=== PATIENT | male | born 1955 | race Caucasian/White ===

== ENCOUNTER 2019-08-03 16:34 | Inpatient (IN) ==
--- NOTE | 2019-08-03 18:08 | Diag Imaging Result Doc PS360 ---
EXAM: CT HEAD W/O CONTRAST INDICATION: ams TECHNIQUE: This exam was performed using automated exposure control, adjustment of mA or kV according to patient size, and/or use of iterative reconstruction technique. COMPARISON: None. FINDINGS: There is no definite acute infarct given the limited sensitivity of CT versus MRI. There is no discrete intracranial mass, mass effect, or intracranial hemorrhage. The surrounding soft tissues and bony structures are essentially unremarkable. IMPRESSION: No evidence of acute intracranial pathology. Electronically signed by Aashish Burroughs 08/03/2019 6:05 PM
--- NOTE | 2019-08-03 18:11 | Diag Imaging Result Doc PS360 ---
EXAM: CHEST-PORTABLE INDICATION: ams TECHNIQUE: One view COMPARISON: 03/13/2013 FINDINGS: There is a moderate-sized right pleural effusion with adjacent right basilar atelectasis. The left lung is clear. There is no evidence of pneumothorax. The cardiomediastinal silhouette and central vasculature are grossly unremarkable. IMPRESSION: Moderate-sized right pleural effusion with adjacent atelectasis. Electronically signed by Aashish Burroughs 08/03/2019 6:09 PM
[2019-08-03] MEDS ORDERED: NS 250 ML IV ONE (18:25)
[2019-08-03] MEDS ORDERED: ZOFRAN IV ONE (18:26)
[2019-08-03] MEDS ORDERED: MORPHINE IV ONE (18:26)
[2019-08-03 18:56] LABS: BASO# 0.02 X1000 (0.0-0.2); BASO% 0.2 % (0.0-0.8); HEMATOCRIT 47.2 % (42.0-52.0); IMM GRAN# 0.04 X1000 (0.0-0.04); IMM GRAN% 0.4 % (0.0-0.5); LYMPH# 1.03 X1000 (1.2-3.4); LYMPH% 9.2 % (20.5-51.1); MCH 30.4 PG (27-31); MCHC 33.9 g/dL (33-37); MCV 89.7 FL (81-99); MONO% 7.1 % (1.7-9.3); MPV 10.5 FL (7.4-10.4); NEUT# 9.33 X1000 (1.4-6.5); NEUT% 83.1 % (42.2-75.2); PLT 274 X1000 (130-400); RBC 5.26 XMIL (4.7-6.1); RDW 13.6 % (11.5-14.5); WBC 11.22 X1000 (4.8-10.8)
[2019-08-03 19:17] LABS: AGAP 14; ALB/GLOB RATIO 0.8; ALBUMIN 3.5 g/dL (3.5-5.0); ALKALINE PHOSPHATASE 365 U/L (32-122); BUN 18 mg/dL (8-22); CALCIUM 9.2 mg/dL (8.8-10.2); CHLORIDE 97 mmol/L (98-107); COSMO 280; CREATININE 0.6 mg/dL (0.7-1.2); ESTIMATED GFR > 60; GLUCOSE 144 mg/dL (70-104); GOT 181 U/L (10-34); GPT 167 U/L (10-44); POTASSIUM 3.9 mmol/L (3.5-5.1); SODIUM 138 mmol/L (136-145); TCO2 27 mmol/L (25-35); TOTAL PROTEIN 7.8 g/dL (6.3-8.3)
[2019-08-03 20:05] LABS: URINE SOURCE CLEAN CATCH
[2019-08-03 20:07] LABS: BILIRUBIN URINE SMALL (NEGATIVE); BLOOD URINE NEGATIVE (NEGATIVE); COLOR YELLOW; GLUCOSE URINE NEGATIVE (NEGATIVE); KETONE URINE NEGATIVE (NEGATIVE); LEUKOCYTES URINE NEGATIVE (NEGATIVE); NITRITE URINE NEGATIVE (NEGATIVE); PH URINE 6.5; PROTEIN URINE 50 mg/dL (NEGATIVE); SP GRAVITY URINE 1.026; TURBIDITY URINE CLEAR (CLEAR); UROBILINOGEN URINE 6 mg/dL (NORMAL)
[2019-08-03 20:10] LABS: UR EPITHELIAL CELLS <10 /HPF (<10); URINE BACTERIA NEGATIVE /HPF; URINE RBC <10 /HPF (<10); URINE WBC <10 /HPF (<10)
[2019-08-03 20:28] LABS: UR AMPHETAMINES QUAL NONE DETECTED (NONE DETECT); UR BARBITUATES QUAL NONE DETECTED (NONE DETECT); UR BENZODIAZEPIN QUAL NONE DETECTED (NONE DETECT); UR CANNABINOIDS QUAL NONE DETECTED (NONE DETECT); UR COCAINE QUAL NONE DETECTED (NONE DETECT); UR METHADONE QUAL NONE DETECTED (NONE DETECT); UR OPIATES QUAL PRESUMPTIVE POSITIVE (NONE DETECT); UR OXYCODONE QUAL NONE DETECTED (NONE DETECT); UR PCP QUAL NONE DETECTED (NONE DETECT)
[2019-08-03] MEDS ORDERED: DILAUDID IV ONE ×2 (20:37→21:09)
[2019-08-03] MEDS: NORVASC PO SCH (21:00)
[2019-08-03] MEDS ORDERED: LACTULOSE PO ONE (21:09)
--- NOTE | 2019-08-03 22:47 | HISTORY AND PHYSICAL ---
CHIEF COMPLAINT: Altered mental status. HISTORY OF PRESENT ILLNESS: This is a 63-year-old male with a history of hepatitis C, cirrhosis, liver cancer, hypertension, GERD, who comes in tonight with the complaint of acute onset confusion last night which he states is primarily resolved. He is still not oriented to time. He is able to converse for the most part but he is all over the place with his facts. He will start telling one thing and stop and start another story. So he is still having some intermittent confusion despite being oriented to person, place and situation, but disoriented to time. His family is at the bedside. They state that he has not been taking his medication since yesterday, that he had been spitting them out. The patient, however, states that he has been taking his medications and has been in the ER all day and not received any medications. He has only been in the ER for I think 4 hours and he has received medications while he was here so he is still confused. His ammonia is 67. His liver enzymes are elevated. His total bilirubin is elevated but I am unsure where these have been over the past few years because the patient has been going primarily to [facility]. He originally wanted to leave against medical advice and go to [facility] but decided to stay. He will be admitted for further evaluation and treatment. PAST MEDICAL HISTORY: See HPI. PREVIOUS SURGICAL HISTORY: Right knee arthroscopy. SOCIAL HISTORY: Smokes 2-4 cigarettes a day. No alcohol. No illicit drugs. Lives with his . FAMILY HISTORY: Mother had pancreatic cancer. ALLERGIES: No known drug allergies. HOME MEDICATIONS: Amlodipine 10 mg p.o. b.i.d., Eliquis 5 mg p.o. b.i.d., lactulose 30 mg p.o. daily, omeprazole 40 mg p.o. daily, prednisone 20 mg p.o. daily, propranolol 10 mg p.o. b.i.d. and Xifaxan 550 mg p.o. b.i.d. REVIEW OF SYSTEMS: Fourteen-point review of systems conducted with the patient. He ultimately denies complaints other than confusion. However, this is likely limited related to his intermittent confusion. Pertinent positives for admission are listed above in the HPI. All other systems were reviewed and negative. PHYSICAL EXAMINATION: VITAL SIGNS: Temperature 97.6, pulse 70, respirations 18, blood pressure 148/87, oxygen saturation 95% on room air. GENERAL: A 63-year-old male slightly jaundiced lying in the ER stretcher. He is oriented to person, place and situation, disoriented to time with intermittent confusion. Family is at bedside. He is in no acute distress. HEENT: Head is atraumatic, normocephalic. Pupils equal, round, reactive to light. Extraocular eye movement is intact. Sclera is jaundiced. Conjunctiva is pink. Oral mucosa is mildly dry. NECK: Supple. No JVD. No thyromegaly. Trachea is midline. No cervical lymphadenopathy. CARDIAC: S1, S2 appreciated. No murmurs, gallops, rubs. LUNGS: Clear to auscultation bilaterally. No rhonchi, wheezes, rales. Symmetric rise and fall with respirations. ABDOMEN: Soft, slightly distended, diffusely tender. Bowel sounds present all 4 quadrants, normoactive. No pulsatile mass. No organomegaly. EXTREMITIES: No clubbing, cyanosis or edema. Two--plus pedal pulses bilaterally. GENITOURINARY: No bladder distention. Patient voids. Otherwise deferred. NEUROLOGICAL: Alert and oriented to person, place, situation. Disoriented to time. Noted for intermittent confusion. Cranial nerves 2 through 12 grossly intact. DIAGNOSTIC DATA: CT of the head: No acute intracranial process. Chest x-ray shows a moderate- sized right pleural effusion. LABORATORY DATA: WBC 11.22. Hemoglobin 16. Hematocrit 47.2. Platelet count 274. Sodium 138. Potassium 3.9. Chloride 97. Carbon dioxide 27. BUN 18. Creatinine 0.6. Glucose 144. Total bilirubin 3.60. AST 181. ALT 167. Alkaline phosphatase 365. Urine unremarkable. Toxicology screen presumptively positive for opiates. ASSESSMENT: 1. Hepatic encephalopathy. 2. Liver cancer. 3. Hepatitis C with known cirrhosis. 4. Hypertension. 5. History of portal vein thrombus with anticoagulation. PLAN: Admit patient to the medical floor. Consult Dr. Hurtado, who was his choice for GI provider. Continue his antihypertensives. Lactulose 30 mg now and then 30 mg b.i.d. A normal saline bolus was given in the emergency room. We will continue at 75 mL an hour. Continue his other home medications including propranolol, Xifaxan, and prednisone and omeprazole. We will give Dilaudid IV as needed for pain. Further recommendations per patient clinical course. Dictated by DARRON Ornelas for Rick Boo MD I have performed a face to face diagnostic evaluation. Labs/Xrays- reviewed. Exam- Chest- clear, CV- regular, Neuro- confused. A/P- AMS, Hepatic encephalopathy- Admit, Lactulose, GI consult. cc: DARRON Ornelas MD [facility]
[2019-08-04] MEDS: NS 1,000 ML IV SCH ×2 (01:00→17:37)
--- NOTE | 2019-08-04 07:40 | EKG Report ---
Test Performed on : 08/03/2019 5:37:37 PM Test Reason : ams Blood Pressure : / mmHG Vent. Rate : 080 BPM Atrial Rate : 080 BPM P-R Int : 142 ms QRS Dur : 092 ms QT Int : 426 ms P-R-T Axes : 006 -13 010 degrees QTc Int : 491 ms Sinus rhythm. with occasional premature ventricular complexes. Prolonged QT Abnormal ECG No previous ECGs available Unconfirmed Result
[2019-08-04] MEDS: XIFAXAN PO SCH ×2 (08:56→21:04)
[2019-08-04] MEDS: NORVASC PO SCH ×2 (08:57→21:04)
[2019-08-04] MEDS: INDERAL PO SCH ×2 (08:57→21:04)
[2019-08-04] MEDS: PREDNISONE PO SCH (08:59)
[2019-08-04] MEDS: ELIQUIS PO SCH ×2 (08:59→21:04)
[2019-08-04] MEDS: PRILOSEC PO SCH (08:59)
[2019-08-04] MEDS ORDERED: LACTULOSE PO SCH (09:00)
[2019-08-04 10:14] LABS: AGAP 12; BUN 19 mg/dL (8-22); CALCIUM 8.6 mg/dL (8.8-10.2); CHLORIDE 99 mmol/L (98-107); COSMO 280; CREATININE 0.5 mg/dL (0.7-1.2); ESTIMATED GFR > 60; GLUCOSE 163 mg/dL (70-104); POTASSIUM 3.5 mmol/L (3.5-5.1); SODIUM 137 mmol/L (136-145); TCO2 26 mmol/L (25-35)
--- NOTE | 2019-08-04 11:06 | PROGRESS NOTE ---
DATE: 08/04/2019 SUBJECTIVE: The patient looks to me still confused, although he has some periods when he is oriented. OBJECTIVE: Vital Signs: Temperature 97.6, heart rate 70, respiratory rate 18, blood pressure 148/87, and O2 saturation 95% on room air. General: On examination, this is a chronically ill- appearing 63-year-old male, lying in bed, in no acute distress. HEENT: Head is normocephalic, atraumatic. Sclerae are jaundiced. Pale conjunctivae. Mucous membranes dry. Neck: No JVD noted. No carotid bruits. No lymphadenopathy. Cardiovascular: S1 and S2 heard. No murmurs, gallops, or rubs. Regular rate and rhythm. Respiratory: Clear bilaterally to auscultation. No work of breathing or using accessory muscles. Abdomen: Soft, a little bit distended. Apparently nontender to palpation. Bowel sounds present. No organomegaly. Extremities: No clubbing, cyanosis, or edema. Peripheral pulses present in both legs. Neurological: The patient is alert and oriented to person and place, but disoriented in time. He has intermittent confusion. The patient moves 4 extremities spontaneously. LABORATORY DATA: The labs from today which is BMP is completely normal. Calcium is 8.6. There are no liver function tests ordered for today or any INR. ASSESSMENT: 1. Hepatic encephalopathy. 2. Liver cancer. 3. Hepatitis C with known hepatic cirrhosis. 4. Hypertension. 5. History of portal vein thrombosis with anticoagulation. PLAN: At this point, patient is noted to be encephalopathic. Apparently, as per history and physical, the patient has not been taking his medications he was supposed to. We will continue with lactulose and rifaximin. We will continue prednisolone and omeprazole. He will receive Dilaudid for pain. Gastroenterology has been consulted. We will follow recommendations. We will continue with anticoagulation with Eliquis. cc: Wong Cardoza MD
[2019-08-04] MEDS: LACTULOSE PO SCH ×2 (13:11→17:37)
[2019-08-04] MEDS: DILAUDID IV PRN ×2 (13:52→21:05)
[2019-08-04] MEDS: ZOFRAN IV PRN ×2 (13:52→21:12)
--- NOTE | 2019-08-04 15:43 | GASTROENTEROLOGY CONSULTATION ---
DATE: 08/04/2019 REASON FOR CONSULT: Liver cancer. HISTORY OF PRESENT ILLNESS: Mr. Warren is a 63-year-old male who has a history of hepatitis C, cirrhosis, liver cancer, hypertension, GERD, who presented to the hospital yesterday with complaints of confusion last night. The patient mentioned that he is on Xifaxan and lactulose and he is not been compliant with his medication. He did not take his medication as he was supposed to, last couple of days onwards he has been neglecting it. The patient does have liver cancer which is stage III. He had his last chemo 9 months ago. He has denied any nausea, vomiting, but did complain of abdominal pain and he mentioned that he has noted that his urine is dark orange in color. The patient has also mentioned that he does not have any appetite for the last 1 week onward. He has lost almost 10 pounds. He also mentions that today he has a problem of constipation. He has not had bowel movement the last few days onwards. Patient's ammonia level yesterday was 67. His liver enzymes were elevated, total bilirubin is 3.60, AST 181, ALT 167, alkaline phosphatase is 365. Patient's head CT yesterday showed no evidence of acute intracranial hemorrhage. His chest x-ray has shown moderate-sized pleural effusion, adjacent atelectasis. Patient currently is alert, oriented x3 but he does mention that sometimes he tends to forget what he is doing and that is one of the reasons why he is not compliant with his medications. PAST MEDICAL HISTORY: History of hepatitis C, cirrhosis, liver cancer, hypertension, GERD and tobacco abuse. PAST SURGICAL HISTORY: Right knee arthroscopy. SOCIAL HISTORY: The patient is . Smokes 2 to 4 cigarettes a day. Denies any alcohol and illicit drug use. FAMILY HISTORY: Significant for pancreatic cancer. ALLERGIES: No known drug allergies. HOME MEDICATIONS: Norvasc 10 mg twice a day, Eliquis 5 mg twice a day, lactulose 30 mg daily, omeprazole 40 mg daily, propranolol 10 mg p.o. twice a day, Xifaxan 550 mg p.o. twice a day, prednisone 20 mg p.o. daily. REVIEW OF SYSTEMS: As per HPI. Otherwise 12 point review of system is negative. PHYSICAL EXAMINATION: Vital signs: 97.4 degrees, pulse 75, respirations 18, blood pressure 150/79, oxygen saturation 97% on room air, patient's weight is 244 pounds, BMI is 25.1 kg/m2. General: He is alert, oriented x2 and in no acute distress answering questions appropriately. HEENT: Pale conjunctiva, scleral icterus. PERRL. Neck: Supple. Lungs: Clear to auscultation. Cardiovascular: Regular rate and rhythm. Abdomen: Mildly distended, tender, active bowel sounds heard in all 4 quadrants. Extremities: No clubbing, no cyanosis, no edema, pedal pulses 2+ present bilateral. Neurologic: Alert, oriented x2 nonfocal. Cranial nerves 2-12grossly intact. LABS: WBC 11.22, RBC 5.26, hemoglobin 16.0, hematocrit 47.2, platelet count 274,000. Sodium 137, potassium 3.5, chloride 99, carbon dioxide 26, anion gap 12, BUN 19, creatinine 0.5, glucose 163, calcium 8.6. His urinalysis showed protein of 50, small amount of bilirubin. Toxicology report has shown presumptive positive for urine opiates. IMAGING: Chest x-ray showed moderate size right pleural effusion with adjacent atelectasis. Head CT has shown no evidence of acute intracranial pathology. IMPRESSION AND PLAN: Liver cancer Hepatic encephalopathy Elevated LFT's Cirrhosis H/o Hepatitis C s/p successful treatment PLAN: Mr. Warren is a 63-year-old male with a history of liver cancer. GI has been consulted for his elevated liver enzymes and liver cancer. Patient is currently on IV fluids normal saline at 70 mL/h. He is receiving lactulose 30 mL p.o. 3 times a day and on Xifaxan 550 mg twice a day for his hepatic encephalopathy. We will continue with PPI daily. We will continue to monitor the patient and provide supportive care . This plan was discussed with Dr. Hurtado. Thank you for your consult. Please call us for any further questions or concerns. Dictated by DARRON Diaz for Atif Hurtado MD cc: Atif Hurtado MD I have seen and examined the patient myself and I agree with the above plan of care. Please call us with any questions or concerns. [facility]
[2019-08-04 18:51] LABS: URINE SOURCE CLEAN CATCH
[2019-08-04 19:06] LABS: BILIRUBIN URINE SMALL (NEGATIVE); BLOOD URINE NEGATIVE (NEGATIVE); COLOR YELLOW; GLUCOSE URINE NEGATIVE (NEGATIVE); KETONE URINE NEGATIVE (NEGATIVE); LEUKOCYTES URINE NEGATIVE (NEGATIVE); NITRITE URINE NEGATIVE (NEGATIVE); PH URINE 6.5; PROTEIN URINE 50 mg/dL (NEGATIVE); TURBIDITY URINE CLEAR (CLEAR); UROBILINOGEN URINE 8 mg/dL (NORMAL)
[2019-08-04 19:11] LABS: UR EPITHELIAL CELLS <10 /HPF (<10); URINE BACTERIA NEGATIVE /HPF; URINE RBC <10 /HPF (<10); URINE WBC <10 /HPF (<10)
[2019-08-04 19:37] LABS: URINE CASTS NONE SEEN; URINE CRYSTALS NONE SEEN; URINE YEAST NONE SEEN
[2019-08-04 19:38] LABS: URINE SMALL ROUND CELLS TRANS PRESENT
[2019-08-05 08:19] LABS: INR 1.46
[2019-08-05 08:26] LABS: BASO# 0.03 X1000 (0.0-0.2); BASO% 0.3 % (0.0-0.8); EOS# 0.07 X1000 (0.0-0.7); EOS% 0.7 % (0.0-10.0); HEMOGLOBIN 14.2 g/dL (14.0-18.0); IMM GRAN# 0.04 X1000 (0.0-0.04); IMM GRAN% 0.4 % (0.0-0.5); LYMPH# 1.27 X1000 (1.2-3.4); LYMPH% 12.2 % (20.5-51.1); MCH 29.8 PG (27-31); MCHC 32.3 g/dL (33-37); MCV 92.4 FL (81-99); MONO# 1.65 X1000 (0.11-0.59); MONO% 15.8 % (1.7-9.3); MPV 10.4 FL (7.4-10.4); NEUT# 7.39 X1000 (1.4-6.5); NEUT% 70.6 % (42.2-75.2); PLT 301 X1000 (130-400); RBC 4.76 XMIL (4.7-6.1); RDW 13.8 % (11.5-14.5); WBC 10.45 X1000 (4.8-10.8)
[2019-08-05 08:37] LABS: AGAP 12; ALB/GLOB RATIO 0.8; ALBUMIN 3.1 g/dL (3.5-5.0); ALKALINE PHOSPHATASE 367 U/L (32-122); BUN 14 mg/dL (8-22); CALCIUM 8.3 mg/dL (8.8-10.2); CHLORIDE 100 mmol/L (98-107); COSMO 276; CREATININE 0.4 mg/dL (0.7-1.2); ESTIMATED GFR > 60; GLUCOSE 123 mg/dL (70-104); GOT 234 U/L (10-34); GPT 163 U/L (10-44); POTASSIUM 3.9 mmol/L (3.5-5.1); SODIUM 137 mmol/L (136-145); TCO2 25 mmol/L (25-35); TOTAL BILIRUBIN 3.34 mg/dL (0.20-1.00); TOTAL PROTEIN 6.9 g/dL (6.3-8.3)
[2019-08-05] MEDS: XIFAXAN PO SCH ×2 (11:10→20:38)
[2019-08-05] MEDS: NORVASC PO SCH ×2 (11:11→20:38)
[2019-08-05] MEDS: PRILOSEC PO SCH (11:11)
[2019-08-05] MEDS: LACTULOSE PO SCH ×3 (11:11→18:20)
[2019-08-05] MEDS: PREDNISONE PO SCH (11:11)
[2019-08-05] MEDS: ELIQUIS PO SCH ×2 (11:11→21:00)
[2019-08-05] MEDS: NS 1,000 ML IV SCH (11:12)
[2019-08-05] MEDS: INDERAL PO SCH ×2 (11:13→20:39)
--- NOTE | 2019-08-05 15:05 | GASTROENTEROLOGY PROGRESS NOTE ---
DATE: 08/05/2019 SUBJECTIVE: Mr. Warren is a 63-year-old male. He was sitting at the side of bed. The patient is confused and he was refusing to talk. The patient did have 1 bowel movement today. He is currently on a regular diet. Family is at the bedside mentioning that he was able to eat his diet well. OBJECTIVE: Vital signs: Temperature 97.7 degrees, pulse 84, respirations 19, blood pressure 162/74, oxygen saturation 96% on room air. The patient's weight is 169 pounds, BMI is 25.0 kg/m2. General: The patient is confused. HEENT: Pale conjunctivae, scleral icterus. PERRL. Neck: Supple. Lungs: Clear to auscultation. Cardiovascular: Regular rate and rhythm. Abdomen: Mildly distended, tender, firm. Active bowel sounds heard in all 4 quadrants. Extremities: No clubbing, no cyanosis, no edema. Pedal pulses 2+ present bilaterally. Neurologic: Patient is confused. LABORATORY DATA: WBCs are 10.45, RBC 4.76, hemoglobin 14.2, hematocrit 44.0, platelet count is 301,000. PT 18.0, INR is 1.46. Sodium 137, potassium 3.9, chloride 100, carbon dioxide 25, anion gap 12, BUN 14, creatinine 0.4, glucose 123, calcium 8.3. Total bilirubin is 3.34, AST 234, ALT 163, alkaline phosphatase is 367. Urinalysis yesterday showed that he has urine protein of 50, small amount of bilirubin. IMPRESSION AND PLAN: 1. Liver cancer. 2. Hepatic encephalopathy. 3. Elevated liver function tests. 4. Cirrhosis. 5. History of hepatitis C s/p treatment. 6. Altered mental status. PLAN: Mr. Warren is a 63-year-old male with a history of liver cancer. GI is following him for his elevated liver enzymes. The patient is currently on IV fluids, normal saline at 70 mL/hour. He is receiving Xifaxan 550 mg p.o. for his hepatic encephalopathy and he is on lactulose 30 mL p.o. 3 times a day. The patient's liver enzymes have trended upwards. His bilirubin is 3.34, AST 234, ALT is 163, alkaline phosphatase is 367. We will continue to monitor patient's liver function tests and provide supportive care. This plan was discussed with Dr. Rowan. Please call us for any further questions or concerns. Dictated by DARRON Diaz for Hitesh Rowan MD [facility]
--- NOTE | 2019-08-05 17:10 | Diag Imaging Result Doc PS360 ---
EXAM: CT ABD/PELVIS W/IV CONT ONLY HISTORY: HCC TECHNIQUE: CT abdomen and pelvis with intravenous contrast only. Oral contrast not given. COMPARISON: None. FINDINGS: There is a moderate-sized right-sided pleural effusion measuring 5.8 cm posteriorly and inferiorly in the midline. There are atelectasis and infiltrates in the right lower lobe. Markedly dilated common bile duct and intrahepatic ducts. The common bile duct measures up to 2.3 cm in diameter. Intrahepatic ducts also measure up to 2.2 cm in diameter. The liver is nodular and there is a questionable central hepatic mass. Small amount of abdominal and pelvic ascites. No splenomegaly. No inflammation about the pancreas. There are upper abdominal varices. Normal adrenal glands and kidneys. No hydronephrosis. No aortic aneurysm. There are enlarged para-aortic and pericaval lymph nodes measuring up to 3 cm. There is sludge and stones within the gallbladder. No bowel obstruction. There are colonic diverticula. Urinary bladder is moderately distended. The prostate is not enlarged. IMPRESSION: 1.Right pleural effusion with right lower lobe pneumonia and atelectasis 2.Severe intra and extrahepatic biliary dilatation with cirrhosis and apparently an underlying hepatic mass. 3.Enlarged para-aortic and pericaval lymph nodes 4.Cholelithiasis 5.Small amount of ascites 6.Colonic diverticulosis This exam was performed using automated exposure control, adjustment of mA or kV according to patient size, and/or use of iterative reconstruction technique. Electronically signed by Giuseppe Lopes 08/05/2019 5:08 PM
--- NOTE | 2019-08-05 20:36 | PROGRESS NOTE ---
DATE: 08/05/2019 SUBJECTIVE: This morning Mr. Warren refers to be doing well. However, he still remains quite confused. He is not able to complete his sentences. is at the bedside and she does most of the talking. OBJECTIVE: Vital signs: Blood pressure is 144/86, pulse of 78, respirations 19, temperature 98.0 degrees. General: Mr. Warren is a 63-year-old gentleman. He is in bed, no distress. HEENT: Mucosa is pink and moist. Anicteric. Acyanotic. Neck: Supple. Chest: Good air entry bilaterally. There were no crepitations, no rhonchi. Cardiovascular: Regular rate and rhythm. Abdomen: Soft, nontender. The liver is about 3 to 4 cm palpable below the costal margin. It is firm and is nontender. Extremities: There is no pedal edema. DIRECTOR OF CARDIOLOGY: Patient is awake, alert, and oriented. LABORATORY DATA: CBC for most part is unremarkable. Chemistry is also reviewed. Liver enzymes are elevated. ASSESSMENT: 1. Altered mental status, presumably from hepatic encephalopathy. The patient is on rifaximin and lactulose. GI is on board. 2. Cirrhosis of the liver complicated with hepatocellular carcinoma. The patient has been started on Nexavar by Dr. Valdez in [place]. 3. Generalized weakness, presumably due to the underlying malignancy. However, side effects of the immune therapy could potentially also be. The patient is getting a CT scan, triple phase of the abdomen to see how the HCC is. 4. Elevated liver enzymes, presumably due to the underlying hepatocellular carcinoma. The patient has a history of hepatitis C. A quantitative sample in 2017 was unremarkable. We are going to repeat to make sure there is no re-emergence of the virus. cc: Bebeto Romo MD [facility]
[2019-08-05] MEDS: DILAUDID IV PRN (20:52)
[2019-08-05] MEDS: ZOFRAN IV PRN (20:53)
[2019-08-06] MEDS: DILAUDID IV PRN ×2 (02:58→18:07)
[2019-08-06] MEDS: ZOFRAN IV PRN (02:58)
[2019-08-06] MEDS: PRILOSEC PO SCH (08:05)
[2019-08-06] MEDS: PREDNISONE PO SCH (08:05)
[2019-08-06] MEDS: LACTULOSE PO SCH ×3 (08:05→16:28)
[2019-08-06] MEDS: NORVASC PO SCH ×2 (08:05→21:19)
[2019-08-06] MEDS: XIFAXAN PO SCH ×2 (08:05→21:18)
[2019-08-06] MEDS: INDERAL PO SCH ×2 (08:06→21:19)
[2019-08-06] MEDS: ELIQUIS PO SCH ×2 (08:06→21:19)
[2019-08-06 08:17] LABS: BASO# 0.02 X1000 (0.0-0.2); BASO% 0.2 % (0.0-0.8); EOS% 1.1 % (0.0-10.0); HEMATOCRIT 41.3 % (42.0-52.0); HEMOGLOBIN 13.3 g/dL (14.0-18.0); IMM GRAN# 0.02 X1000 (0.0-0.04); IMM GRAN% 0.2 % (0.0-0.5); LYMPH# 1.28 X1000 (1.2-3.4); LYMPH% 13.8 % (20.5-51.1); MCH 29.8 PG (27-31); MCHC 32.2 g/dL (33-37); MCV 92.4 FL (81-99); MONO# 1.36 X1000 (0.11-0.59); MONO% 14.7 % (1.7-9.3); PLT 263 X1000 (130-400); RBC 4.47 XMIL (4.7-6.1); RDW 13.7 % (11.5-14.5); WBC 9.28 X1000 (4.8-10.8)
[2019-08-06 08:23] LABS: INR 1.36
[2019-08-06 08:35] LABS: AGAP 11; ALB/GLOB RATIO 0.7; ALBUMIN 2.8 g/dL (3.5-5.0); ALKALINE PHOSPHATASE 314 U/L (32-122); BUN 13 mg/dL (8-22); CALCIUM 8.4 mg/dL (8.8-10.2); CHLORIDE 101 mmol/L (98-107); COSMO 277; CREATININE 0.4 mg/dL (0.7-1.2); ESTIMATED GFR > 60; GLUCOSE 113 mg/dL (70-104); GOT 157 U/L (10-34); GPT 143 U/L (10-44); POTASSIUM 3.5 mmol/L (3.5-5.1); SODIUM 138 mmol/L (136-145); TCO2 26 mmol/L (25-35); TOTAL BILIRUBIN 3.11 mg/dL (0.20-1.00)
[2019-08-06] MEDS: NS 1,000 ML IV SCH ×2 (10:49→19:45)
--- NOTE | 2019-08-06 13:25 | GASTROENTEROLOGY PROGRESS NOTE ---
DATE: 08/06/2019 SUBJECTIVE: Mr. Warren is a 63-year-old, male resting in bed. The patient was able to tell his name and his date of but has some periods of confusion. He was not able to tell what exactly the year is today. The patient is on a regular diet. He is able to tolerate his diet well. He has been having positive bowel movements. This morning, he had one bowel movement. OBJECTIVE: Vital Signs: Temperature 98.0, pulse 71, respirations 22, blood pressure 139/67, oxygen saturation 95% on room air. His weight is 169 pounds. BMI is 25.0 kg/m2. General: He is alert, oriented x2, but has periods of confusion. HEENT: Pale conjunctivae. Sclerae are icteric. PERRL. Neck: Supple. Lungs: Clear to auscultation. Cardiovascular: Regular rate and rhythm. Abdomen: Mildly distended, tender. Active bowel sounds heard in all 4 quadrants. Extremities: No clubbing, no cyanosis, no edema. Pedal pulses 2+ present bilaterally. Neurologic: He is alert, oriented x2 with periods of confusion Labs: WBCs are 9.28, RBCs 4.47, hemoglobin 13.3, hematocrit is 41.3, platelet count is 263,000. PT is 17.0, INR is 1.36. Sodium 138, potassium 3.5, chloride 101, carbon dioxide 26, anion gap 11, BUN 13, creatinine is 0.4, glucose is 113, calcium is 8.4. Total bilirubin is 3.11, AST is 157, ALT is 143, alkaline phosphatase is 314, albumin is 2.8. IMAGING: The patient's abdomen and pelvis CT yesterday showed he had right pleural effusions with right lower lobe pneumonia and atelectasis, severe intra and extrahepatic biliary dilation with cirrhosis and apparently an underlying hepatic mass, enlarged paraaortic and pericaval lymph nodes, cholelithiasis, small amount of ascites, colonic diverticulosis. IMPRESSION AND PLAN: - PSE - Decompensated HCV cirrhosis - HCC - Portal vein thrombus - HTN PLAN: Mr. Warren is a 63-year-old, male with a history of liver cancer. GI is following him for his elevated liver enzymes. The patient is currently receiving IV fluids at 70 mL per hour. He is on Xifaxan for his hepatic encephalopathy and he is on lactulose. We will continue to monitor his liver function tests. The patient's LFTs are currently trending downward but they are still elevated. We will continue to monitor the patient and follow the plan of care per PCP. This plan was discussed with Dr. Rowan. Please call us for any further questions or concerns. Dictated by DARRON Diaz for Hitesh Rowan MD Physician Attestation I have seen and examined the patient. I have discussed and reviewed the note by Sapna ROB and agree with findings and plan as documented. In brief, Mr. Crenshaw is a 63 year old man with decompensated HCV cirrhosis and HCC who presented with PSE that has improved significantly with lactulose and xifaxan. His symptoms are likely from med noncompliance. Renal function preserved. Anticipate patient can be discharged in the next 1-2 days from GI perspective. MTDD
--- NOTE | 2019-08-06 16:14 | PROGRESS NOTE ---
DATE: 08/06/2019 SUBJECTIVE: Today, Mr. Warren referred to be doing slightly better. He still remains for the most part confused. He was in bed, in no distress. OBJECTIVELY: Vital Signs: Blood pressure is 139/67, pulse of 72, respiration rate is 20, temperature is 98 degrees. General: Mr. Warren is a 63-year-old gentleman. He was in bed. No distress. HEENT: Mucosa is pink and moist. Anicteric. Acyanotic. Neck: Supple. Chest: Clear to auscultation. No crepitations. No rhonchi. Cardiovascular: Regular rate and rhythm. No murmurs. No rubs. No gallops. Gastrointestinal: Abdomen soft, nontender. Liver span is about 3 to 4 cm beyond the costal margin and is firm. Extremities: No pedal edema. Central Nervous System: Patient is awake, alert. He is oriented to person and to place. He was not able to tell me the year, but he was able to tell me the month. Every now and then, however, he would look quite dazed like he has forgotten what he wants to say. LABORATORY DATA: CBC shows mild normocytic anemia. Chemistry is for the most part unremarkable. LFTs are elevated but they are trending down. Intake and output: Documented bowel movement every day. ASSESSMENT: 1. Altered mental status, presumably from hepatic encephalopathy. The patient is on rifaximin and lactulose. Mentation seems to be clearing up, but he continues to be obviously encephalopathic. We will continue with the current medications. Gastroenterology is on board. 2. Cirrhosis of the liver complicated with hepatocellular carcinoma. The patient is aware. He has been started on Nexavar by Dr. Valdez in [place]. 3. Generalized weakness, presumably due to underlying malignancy. Physical therapy is on board. 4. Elevated liver enzymes. This is trending down. 5. History of hepatitis C, quantitative test in 2017 showed that the disease has been cured. PLAN: In general, Mr. Warren is fairly stable. I think his mentation seems to be clearing up slowly. We will continue with the rifaximin and the lactulose for now and continue to monitor his mentation. We will repeat his ammonium level for tomorrow and wait for further recommendations from GI. cc: Bebeto Romo MD
[2019-08-07] MEDS: NS 1,000 ML IV SCH (01:43)
[2019-08-07] MEDS: DILAUDID IV PRN ×2 (01:43→09:20)
[2019-08-07 08:09] LABS: BASO# 0.02 X1000 (0.0-0.2); BASO% 0.2 % (0.0-0.8); EOS# 0.15 X1000 (0.0-0.7); EOS% 1.7 % (0.0-10.0); HEMATOCRIT 41.2 % (42.0-52.0); HEMOGLOBIN 13.1 g/dL (14.0-18.0); IMM GRAN# 0.02 X1000 (0.0-0.04); IMM GRAN% 0.2 % (0.0-0.5); LYMPH# 1.38 X1000 (1.2-3.4); LYMPH% 15.8 % (20.5-51.1); MCH 29.6 PG (27-31); MCHC 31.8 g/dL (33-37); MCV 93.2 FL (81-99); MONO# 1.24 X1000 (0.11-0.59); MONO% 14.2 % (1.7-9.3); NEUT# 5.92 X1000 (1.4-6.5); NEUT% 67.9 % (42.2-75.2); PLT 274 X1000 (130-400); RBC 4.42 XMIL (4.7-6.1); RDW 13.8 % (11.5-14.5); WBC 8.73 X1000 (4.8-10.8)
[2019-08-07 08:14] LABS: INR 1.36
[2019-08-07 08:52] LABS: AGAP 10; ALB/GLOB RATIO 0.8; ALBUMIN 2.7 g/dL (3.5-5.0); ALKALINE PHOSPHATASE 292 U/L (32-122); BUN 13 mg/dL (8-22); CALCIUM 7.9 mg/dL (8.8-10.2); CHLORIDE 102 mmol/L (98-107); COSMO 274; CREATININE 0.4 mg/dL (0.7-1.2); ESTIMATED GFR > 60; GLUCOSE 104 mg/dL (70-104); GOT 92 U/L (10-34); GPT 109 U/L (10-44); POTASSIUM 3.5 mmol/L (3.5-5.1); SODIUM 137 mmol/L (136-145); TCO2 25 mmol/L (25-35); TOTAL BILIRUBIN 2.78 mg/dL (0.20-1.00); TOTAL PROTEIN 6.2 g/dL (6.3-8.3)
[2019-08-07] MEDS: PREDNISONE PO SCH (09:15)
[2019-08-07] MEDS: INDERAL PO SCH (09:15)
[2019-08-07] MEDS: ELIQUIS PO SCH (09:15)
[2019-08-07] MEDS: XIFAXAN PO SCH (09:15)
[2019-08-07] MEDS: LACTULOSE PO SCH (09:15)
[2019-08-07] MEDS: PRILOSEC PO SCH (09:15)
[2019-08-07] MEDS: NORVASC PO SCH (09:16)
[2019-08-07] MEDS: ZOFRAN IV PRN (09:23)
[2019-08-07 11:12] VITALS: BP 140/70
--- NOTE | 2019-08-07 11:34 | GASTROENTEROLOGY PROGRESS NOTE ---
DATE: 08/07/2019 SUBJECTIVE: Mr. Warren is a 63-year-old, male resting in bed. Family is at his bedside. The patient is able to tell his name, date of , where he is, and which year it is, but patient is still complaining that he sees some insects flying around the room which he says he does not like. He is on a regular diet, able to tolerate his diet well. He has been having positive bowel movements. 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 OBJECTIVE: Vital Signs: Temperature 98.0 degrees, pulse 72, respirations 18, blood pressure 135/74, oxygen saturation 96% on room air. The patient's weight is 169 pounds. BMI is 25.0 kg/m2. General: He is alert, oriented x3, but has periods of confusion. HEENT: Pale conjunctivae. Scleral icterus. PERRL. Neck: Supple. Lungs: Clear to auscultation. Cardiovascular: Regular rate and rhythm. Abdomen: Mildly distended, nontender. Active bowel sounds heard in all 4 quadrants. Extremities: No clubbing, no cyanosis, no edema. Pedal pulses 2+ present bilaterally. Neurologic: He is alert and oriented x3 but he is having periods of confusion. Labs: WBCs are 8.73, RBCs 4.42, hemoglobin is 13.1, hematocrit is 41.2, platelet count is 274,000. PT is 17.0, INR is 1.36. Sodium is 137, potassium 3.5, chloride 102, carbon dioxide 25, anion gap is 10, BUN is 13, creatinine is 0.4, glucose is 104, calcium is 7.9. Total bilirubin is 2.78, AST is 92 degrees, ALT is 109, alkaline phosphatase is 292, the patient's ammonia today is 93. IMPRESSION AND PLAN: 1. Liver cancer. 2. Hepatic encephalopathy. 3. Elevated liver function tests. 4. Cirrhosis. PLAN: Mr. Warren is a 63-year-old, male with a history of liver cancer. GI is following him for his elevated liver enzymes. The patient's ammonia levels have been elevated. The patient is alert and oriented x3, but he is still having some periods of confusion. He is mentioning that he sees some insects flying in the room. The patient is currently on Xifaxan and lactulose TID for his hepatic encephalopathy. We will continue with his Xifaxan and lactulose. The patient is also receiving IV fluids normal saline at 70 mL per hour. He is on a regular diet and is able to tolerate his diet well. We will continue to monitor his CBCs PT, INR, and ammonia levels. Patient has been emphasized to continue taking his medication daily. Patient has discharge orders to go home today. We will follow him up as an outpatient in 4 to 6 weeks. This plan was discussed with Dr. Hurtado. Please call us for any further questions or concerns. Dictated by DARRON Diaz for Atif Hurtado MD cc: Atif Hurtado MD I have seen and examined the patient myself and I agree with the above plan of care. Please call us with any questions or concerns.Follow up in clinic in 4-6 weeks. MTDD
--- NOTE | 2019-08-08 23:44 | DISCHARGE SUMMARY ---
ADMISSION DATE: 08/03/2019 DISCHARGE DATE: 08/07/2019 DISPOSITION: Home. CONSULTATION DURING THIS ADMISSION: GI was consulted, patient was seen by Dr. Hurtado, followed up by Dr. Rowan. INVASIVE PROCEDURES DONE DURING THIS ADMISSION: None. IMAGING STUDIES OF SIGNIFICANCE: 1. A CT scan of the head without contrast showed no evidence of acute intracranial disease. 2. A chest x-ray showed moderate-sized right pleural effusion with adjacent atelectasis. 3. CT scan of the abdomen showed right pleural effusion with right lower lobe pneumonia and atelectasis. 4. Severe intra and extrahepatic dilation with cirrhosis. 5. Enlarged para-aortic and pericaval lymph nodes. 6. Cholelithiasis. 7. Small amount of ascites. 8. Colonic diverticulosis. ADMISSION DIAGNOSES: 1. Hepatic encephalopathy. 2. Liver cancer. 3. Hepatitis C. 4. History of portal vein thrombosis with anticoagulation. DIAGNOSIS AT THE TIME OF DISCHARGE: 1. Altered mental status on presentation, presumably from hepatic encephalopathy. 2. Cirrhosis of the liver complicated with hepatocellular carcinoma. 3. Generalized weakness. 4. Transaminitis. 5. History of hepatitis C, cured. 6. History of portal vein thrombosis on anticoagulation. DISCHARGE MEDICATIONS: 1. Amlodipine 10 mg b.i.d. 2. Eliquis 5 mg b.i.d. 3. Lactulose 30 mg p.o. daily. 4. Omeprazole 40 mg p.o. daily. 5. Propranolol 10 mg b.i.d. 6. Rifaximin 550 b.i.d. 7. Prednisone 20 mg p.o. daily. 8. Lactulose 30 mL p.o. daily. PRESENTING COMPLAINT: Altered mental status. HISTORY OF PRESENT COMPLAINT: Mr. Warren is a 63-year-old gentleman who is known to have cirrhosis of the liver complicated with hepatocellular carcinoma, follows up with Dr. Valdez in [place]. Came to the emergency room because of altered mental status. The patient was evaluated. He did show global encephalopathy picture, ammonium level was 67. He was thought to be in hepatic encephalopathy. He was admitted for further medical care. HOSPITAL COURSE: Mr. Warren was admitted to the medical floor, was started on rifaximin and lactulose. GI was consulted. The patient was seen by both Dr. Rowan and Dr. Hurtado. During the hospital course, his mentation continued to gradually improve. He also had multiple bowel movements. was at the bedside almost every day that we saw him. During the hospital course, Mr. Warren continued to improve. On the day of the discharge, he was completely clear. The was at the bedside, who also agreed that Mr. Warren's mentation has significantly improved. He is, therefore, being discharged to follow up with his regular care team in [place]. All the discharge instructions were discussed with him and the , both voiced understanding. At the time of the discharge, Mr. Warren's vitals, blood pressure was 140/70, pulse of 73, respirations 20, temperature was 97.8 degrees. The patient was saturating 97% on room air. TIME SPENT: Time spent for discharge is 35 minutes. cc: MD Dr. Brett Cagle Dr[address] Dr.
== END 2019-08-07 15:03 | disposition home or self-care (01) | DRG 442 ==
LOC: SUPCPDRO → ED 16:34 → EDIPHOLD 22:05 → SUATTDRO 22:05 → 3N 08-04 16:29
PROVIDERS: ATTEND Internal Medicine